=== PATIENT | male | born 1950 | race Caucasian/White ===

== ENCOUNTER 2018-04-05 06:29 | Day surgery (SDC) | payer MEDICARE ==
[2018-04-03 15:04] LABS: BASOPHILS # (AUTO) 0.05 x10^3/uL (0-0.1); BASOPHILS % (AUTO) 1 % (0-1); EOSINOPHILS % (AUTO) 2 % (1-7); LYMPHOCYTES % (AUTO) 28 % (22-44); MD NO; MEAN CORPUSCULAR HEMOGLOBIN 30.4 pg (27.5-34.5); MEAN CORPUSCULAR HGB CONC 33.6 g/dL (33.2-36.2); MEAN CORPUSCULAR VOLUME 90.5 fL (81-97); MEAN PLATELET VOLUME 9.5 fL (7.4-10.4); MONOCYTES # (AUTO) 0.64 x10^3/uL (0.2-0.8); MONOCYTES % (AUTO) 10 % (2-9); NEUTROPHILS # (AUTO) 4.03 x10^3/uL (1.8-6.8); NEUTROPHILS % (AUTO) 60 % (42-75); PLATELET COUNT 225 x10^3/uL (130-400); RED BLOOD COUNT 5.12 x10^6/uL (4.38-5.82); RED CELL DISTRIBUTION WIDTH 14.7 % (9.4-14.8)
[2018-04-03 15:14] LABS: ALANINE AMINOTRANSFERASE 36 U/L (12-78); ALBUMIN 3.8 g/dL (3.4-5.0); ANION GAP 6 mmol/L (5-15); CHLORIDE 106 mmol/L (98-107); CREATININE 1.24 mg/dL (0.7-1.3)
[2018-04-03 15:16] LABS: ALKALINE PHOSPHATASE 93 U/L (45-117); BILIRUBIN,TOTAL 0.4 mg/dL (0.2-1.0); TOTAL PROTEIN 6.8 g/dL (6.4-8.2)
[~2018-04-05] VITALS: Ht 170.2 cm; Wt 78.2 kg
[~2018-04-05 06:29] MED LIST: ARMOUR THYROID PO; METO25TA35 PO; RIVA15TA PO; TEST5POW3 TP
[2018-04-05] MEDS ORDERED: SODIUM CHLORIDE 0.9% 1,000 ML IV SCH ×2 (06:39→07:00)
[2018-04-05] MEDS ORDERED: MIDAZOLAM 1 MG/ML, 2ML ONE (07:34)
[2018-04-05] MEDS ORDERED: FENTANYL PF 250 MCG/5ML ONE (07:34)
[2018-04-05] MEDS ORDERED: ROCURONIUM 10 MG/ML,10ML ONE (08:07)
[2018-04-05] MEDS ORDERED: DEXAMETHASONE 4 MG/ML, 1ML ONE (08:07)
[2018-04-05] MEDS ORDERED: SUCCINYLCHOLINE 20 MG/ML, 10ML ONE (08:07)
[2018-04-05] MEDS ORDERED: ONDANSETRON 2MG/ML, 2ML ONE (08:07)
[2018-04-05] MEDS ORDERED: PROPOFOL 10 MG/ML, 20ML ONE (08:07)
[2018-04-05] MEDS ORDERED: MIDAZOLAM 1 MG/ML, 2ML IV PRN (09:30)
[2018-04-05] MEDS ORDERED: MORPHINE SULFATE 4 MG/ML, 1ML IVPush PRN (09:30)
[2018-04-05] MEDS ORDERED: EPHEDRINE 50 MG/ML, 1ML IVPush PRN (09:30)
[2018-04-05] MEDS ORDERED: EPHEDRINE 50 MG/ML, 1ML IM PRN (09:30)
[2018-04-05] MEDS ORDERED: ONDANSETRON ODT 8 MG PO PRN (09:30)
[2018-04-05] MEDS ORDERED: ACETAMINOPHEN 325 MG TABLET PO PRN (09:30)
[2018-04-05] MEDS ORDERED: OXYcodone 5 MG/5 ML ORAL.SOL UDC PO PRN (09:30)
[2018-04-05] MEDS ORDERED: hydrALAzine 20 MG/ML, 1ML IV PRN (09:30)
[2018-04-05] MEDS ORDERED: FENTANYL PF 100 MCG/2ML IV PRN (09:30)
[2018-04-05] MEDS ORDERED: MEPERIDINE/PF 25MG/0.5ML IVPush PRN (09:30)
[2018-04-06] MEDS ORDERED: [UNRECOGNIZED DRUG - OTHER] PO SCH (09:00)
[2018-04-06] MEDS ORDERED: TESTOSTERONE TP SCH (09:00)
[2018-04-06] MEDS ORDERED: RIVAROXABAN 20 MG TABLET PO SCH (09:00)
== END 2018-04-05 13:49 | disposition home or self-care (01) ==
LOC: CACL 06:29
PROVIDERS: ATTEND Internal Medicine Cardiovascular Disease
DX: I48.92 Unspecified atrial flutter (principal); I10 Essential (primary) hypertension
CPT/HCPCS: 36415; 71046; 80053; 85025; 93312; 93321; 93325; 93613; 93621; 93653; C1730; C1731; C1732; C1894; J0330; J1100; J2250; J2405; J2704; J3010

== ENCOUNTER → 2019-12-24 | Outpatient (CLI) | payer MEDICARE ==
[~2019-12-24] MED LIST changes: +OMNIPAQUE 350 MG/ML, 150 ML BOTTLE ONE; +THYR60TA PO
== END | disposition home or self-care (01) ==
LOC: CFH 13:32
PROVIDERS: ATTEND Internal Medicine Cardiovascular Disease
DX: I48.91 Unspecified atrial fibrillation (principal)
CPT/HCPCS: 75572; Q9967

== ENCOUNTER 2019-12-26 06:33 | Observation (INO) | payer MEDICARE ==
[2019-12-24 14:58] VITALS: BP 131/66
[2019-12-24 15:27] LABS: BASOPHILS # (AUTO) 0.04 x10^3/uL (0-0.1); BASOPHILS % (AUTO) 1 % (0-1); EOSINOPHILS # (AUTO) 0.13 x10^3/uL (0-0.4); EOSINOPHILS % (AUTO) 2 % (1-7); LYMPHOCYTES # (AUTO) 1.58 x10^3/uL (1-3.4); LYMPHOCYTES % (AUTO) 23 % (22-44); MD NO; MEAN CORPUSCULAR HEMOGLOBIN 29.8 pg (27.5-34.5); MEAN CORPUSCULAR HGB CONC 32.8 g/dL (33.2-36.2); MEAN CORPUSCULAR VOLUME 90.7 fL (81-97); MEAN PLATELET VOLUME 9.3 fL (7.4-10.4); MONOCYTES # (AUTO) 0.57 x10^3/uL (0.2-0.8); MONOCYTES % (AUTO) 9 % (2-9); NEUTROPHILS # (AUTO) 4.42 x10^3/uL (1.8-6.8); NEUTROPHILS % (AUTO) 66 % (42-75); PLATELET COUNT 201 x10^3/uL (130-400); RED BLOOD COUNT 4.91 x10^6/uL (4.38-5.82); RED CELL DISTRIBUTION WIDTH 14.6 % (9.4-14.8)
[2019-12-24 15:32] LABS: ANION GAP 5 mmol/L (5-15); CHLORIDE 107 mmol/L (98-107); CREATININE 1.13 mg/dL (0.7-1.3)
[~2019-12-26] VITALS: Ht 170.2 cm; Wt 79.5 kg
[~2019-12-26 06:33] MED LIST changes: -OMNIPAQUE 350 MG/ML, 150 ML BOTTLE ONE
[2019-12-26] MEDS ORDERED: LIDOCAINE 1%, 20ML ONE (06:55)
[2019-12-26] MEDS ORDERED: MIDAZOLAM 1 MG/ML, 2ML ONE (08:21)
[2019-12-26] MEDS ORDERED: FENTANYL PF 250 MCG/5ML ONE (08:21)
[2019-12-26] MEDS ORDERED: PROPOFOL 10 MG/ML, 20ML ONE (12:28)
[2019-12-26] MEDS ORDERED: ONDANSETRON 2MG/ML, 2ML ONE (12:28)
[2019-12-26] MEDS ORDERED: SUCCINYLCHOLINE 20 MG/ML, 10ML ONE (12:28)
[2019-12-26] MEDS ORDERED: ROCURONIUM 10MG/ML,5ML ONE (12:28)
[2019-12-26] MEDS ORDERED: hydrALAzine 20 MG/ML, 1ML IV PRN (13:00)
[2019-12-26] MEDS ORDERED: ONDANSETRON ODT 8 MG PO PRN (13:00)
[2019-12-26] MEDS ORDERED: DIAZEPAM 5 MG/ML, 2ML IVPush PRN (13:00)
[2019-12-26] MEDS ORDERED: PROMETHAZINE 25 MG/ML, 1ML IV PRN (13:00)
[2019-12-26] MEDS ORDERED: ALBUTEROL SULFATE 2.5 MG/3 ML NPPB PRN (13:00)
[2019-12-26] MEDS ORDERED: OXYcodone 5 MG/5 ML ORAL.SOL UDC PO PRN (13:00)
[2019-12-26] MEDS ORDERED: LABETALOL 5MG/ML, 20ML IV PRN (13:00)
[2019-12-26] MEDS ORDERED: HALOPERIDOL 5 MG/ML IV PRN (13:00)
[2019-12-26] MEDS ORDERED: PROMETHAZINE 12.5 MG SUPP PR PRN (13:00)
[2019-12-26] MEDS ORDERED: ONDANSETRON 2MG/ML, 2ML IV PRN (13:00)
[2019-12-26] MEDS ORDERED: METOPROLOL TARTRATE 25 MG TAB PO PRN (13:00)
[2019-12-26] MEDS ORDERED: EPHEDRINE 50 MG/ML, 1ML IVPush PRN (13:00)
[2019-12-26] MEDS ORDERED: MEPERIDINE/PF 25MG/ML,1ML IVPush PRN (13:00)
[2019-12-26] MEDS ORDERED: HYDROmorphone 2 MG/ML, 1ML IVPush PRN (13:00)
[2019-12-26] MEDS ORDERED: MIDAZOLAM 1 MG/ML, 2ML IV PRN (13:00)
[2019-12-26] MEDS ORDERED: ACETAMINOPHEN 325 MG TABLET PO PRN ×2 (13:00)
[2019-12-26] MEDS ORDERED: FENTANYL PF 100 MCG/2ML IV PRN (13:00)
[2019-12-26] MEDS ORDERED: APIXABAN 5 MG TABLET ONE (13:13)
[2019-12-26] MEDS: APIXABAN 5 MG TABLET PO SCH (13:22)
[2019-12-26 13:58] VITALS: BP 115/68
[2019-12-26] MEDS ORDERED: DEXAMETHASONE 4 MG/ML, 1ML ONE (14:39)
[2019-12-26] MEDS: FLECAINIDE 100MG TABLET PO SCH (15:01)
[2019-12-26 19:39] VITALS: BP 118/74
[2019-12-26] MEDS: COLCHICINE 0.6 MG CAPSULE PO SCH (20:26)
[2019-12-26] MEDS: THYROID 30 MG TABLET PO SCH (20:26)
[2019-12-27] MEDS: FLECAINIDE 100MG TABLET PO SCH (01:51)
[2019-12-27 01:55] VITALS: BP 127/69
[2019-12-27] MEDS: THYROID 30 MG TABLET PO SCH (05:21)
[2019-12-27 06:35] VITALS: BP 133/72
[2019-12-27] MEDS: COLCHICINE 0.6 MG CAPSULE PO SCH (07:49)
[2019-12-27] MEDS: APIXABAN 5 MG TABLET PO SCH (07:49)
[2019-12-27] MEDS ORDERED: TESTOSTERONE GEL 1%,2.5GM PACKET TD SCH (09:00)
[2019-12-27] MEDS ORDERED: FLEC100T PO (09:39)
[2019-12-27] MEDS ORDERED: COLC0.6C3 PO (09:39)
[2019-12-27] MEDS ORDERED: APIX5TAB PO (09:39)
== END 2019-12-27 10:40 | disposition home or self-care (01) ==
LOC: CACL 06:33 → ORIP 13:09 → 5SO 14:01 → DCLOUNGE 12-27 10:36
PROVIDERS: ADMIT Internal Medicine Cardiovascular Disease; ATTEND Internal Medicine Cardiovascular Disease
DX: I48.0 Paroxysmal atrial fibrillation (principal); I48.3 Typical atrial flutter; E03.9 Hypothyroidism, unspecified; Z79.899 Other long term (current) drug therapy; Z68.26 Body mass index [BMI] 26.0-26.9, adult
CPT/HCPCS: 36415; 71046; 80048; 85025; 85347; 93306; 93312; 93321; 93325; 93613; 93655; 93656; 93657; 93662; C1730; C1732; C1759; C1766; C1893; C1894; G0378; J0330; J1100; J2250; J2405; J2704; J3010; J3490